=== PATIENT | male | born 1975 | race Caucasian/White ===

== ENCOUNTER 2016-08-20 17:21 | Observation (INO) | payer SELFPAY ==
[~2016-08-20] VITALS: Ht 172.7 cm; Wt 225.0 kg
[2016-08-20 17:22] VITALS: BP 195/100; PULSE 97; RESP 24; TEMP 97.7; O2SAT 97
--- NOTE | 2016-08-20 19:43 | PD ---
HPI Chief Complaint: Respiratory Symptoms Time Seen by Provider: 19:36 Travel History International Travel<30 days: No Contact w/Intl Traveler<30days: No Traveled to known affect area: No History of Present Illness HPI Patient is a 32-year-old male presenting to the emergency department for evaluation of shortness of breath, peripheral edema, dyspnea on exertion. He states the last few weeks he has become increasingly short of breath, he cannot lay flat without feeling like he is filling up with fluid. He states on Saturday night he was very short of breath and developed a chest tightness when he walked from the restaurant to the car. Patient states he has gained weight recently, he is unsure of how much but he states he feels very bloated and swollen. He also reports excessive thirst and excessive urination. Patient's past medical history includes hypertension, he quit smoking in January 2016. He has not been seen by her primary doctor in over 4 years due to lack of medical resources. Patient denies any chest pain currently. PFSH Past Medical History Narrative Medical Morbid obesity Arthritis: Yes Hypertension: Yes Respiratory: Yes (ASTHMA) Past Surgical History Joint Replacement: Yes (knee surgery) Social History Alcohol Use: No Tobacco Use: Yes (quit in January 2016) Substance Use: No Allergies-Medications (Allergen,Severity, Reaction): Coded Allergies: No Known Allergies (Unverified , 08/20/16) Review of Systems Except as stated in HPI: all other systems reviewed are Neg General / Constitutional: Positive: Weight Gain, No: Fever, Chills HENT: No: Headaches, Lightheadedness Cardiovascular: Positive: Chest Pain or Discomfort, Tachycardia, Dyspnea on exertion, Edema Respiratory: Positive: Shortness of Breath, Orthopnea Gastrointestinal: No: Nausea, Vomiting, Diarrhea, Abdominal Pain Genitourinary: Positive: Nocturia Musculoskeletal: No: Myalgias Neurologic: No: Weakness, Dizziness Endocrine: Positive: Polyuria, Polydipsia Physical Exam Narrative GENERAL: Warm and obese, well-developed, alert male. Resting comfortably in no acute distress. SKIN: Warm and dry. Dry scaling skin to bilateral lower extremities. HEAD: Atraumatic. Normocephalic. EYES: Pupils equal and round. No scleral icterus. No injection or drainage. ENT: No nasal bleeding or discharge. Mucous membranes pink and moist. NECK: Trachea midline. No JVD. CARDIOVASCULAR: Regular rate and rhythm without murmurs, gallops, clicks or rubs. 2+ peripheral edema bilateral lower extremities. RESPIRATORY: No accessory muscle use. Clear to auscultation. Diminished in bases. GASTROINTESTINAL: Abdomen obese, non-tender, nondistended. Hepatic and splenic margins not palpable. MUSCULOSKELETAL: No obvious deformities. No clubbing. No cyanosis. NEUROLOGICAL: Awake and alert. No obvious cranial nerve deficits. Motor grossly within normal limits. Normal speech. PSYCHIATRIC: Appropriate mood and affect; insight and judgment normal. Data Data Last Documented VS Vital Signs Date Time Temp Pulse Resp B/P Pulse Ox O2 Delivery O2 Flow Rate FiO2 08/20/16 17:22 97.7 97 24 195/100 97 Room Air Orders Complete Blood Count With Diff (08/20/16 19:33) Comprehensive Metabolic Panel (08/20/16 19:33) B-Type Natriuretic Peptide (08/20/16 19:33) Act Partial Throm Time (Ptt) (08/20/16 19:33) Prothrombin Time / Inr (Pt) (08/20/16 19:33) Magnesium (Mg) (08/20/16 19:33) Ckmb (Isoenzyme) Profile (08/20/16 19:33) Troponin I (08/20/16 19:33) Urinalysis - C+S If Indicated (08/20/16 19:33) Electrocardiogram (08/20/16 19:33) Chest, Pa & Lat (08/20/16 19:33) MDM Medical Decision Making Medical Screen Exam Complete: Yes Emergency Medical Condition: Yes Interpretation(s) Vital Signs Date Time Temp Pulse Resp B/P Pulse Ox O2 Delivery O2 Flow Rate FiO2 08/20/16 17:22 97.7 97 24 195/100 97 Room Air Differential Diagnosis Congestive heart failure versus pneumonia versus bronchitis versus morbid obesity versus ACS versus other Narrative Course Patient is a 40-year-old male presenting to emergency department evaluation of shortness of breath, weight gain, edema, chest pain. Patient's report of increased swelling and feeling of weight gain and bloating over the last several weeks coupled with the shortness of breath, dyspnea on exertion seem likely for diagnosis of congestive heart failure especially coupled with patient 's noncompliance with antihypertensives due to lack of insurance. Morbid obesity could lend to the feeling of shortness of breath and activity intolerance due to deconditioning from carrying that much weight. Labs, imaging , EKG ordered. Care of patient will be transferred to provider in medical pod when a bed is available. Carmen Davidson Aug 20, 2016 19:43
[2016-08-20 19:56] VITALS: BP 174/93; PULSE 93; RESP 30; O2SAT 93
--- NOTE | 2016-08-20 19:59 | RADRPT ---
EXAM DATE/TIME: 08/20/2016 19:55 [facility] COMPARISON: No previous studies available for comparison. INDICATIONS : Shortness of breath for the past three weeks. MEDICAL HISTORY : Hypertension. Asthma. SURGICAL HISTORY : None. ENCOUNTER: Initial ACUITY: 3 weeks PAIN SCORE: 0/10 LOCATION: Bilateral chest FINDINGS: PA and lateral views of the chest demonstrate the lungs to be symmetrically aerated without evidence of mass, infiltrate or effusion. The cardiomediastinal contours are unremarkable. Osseous structure s are intact. CONCLUSION: No acute cardiopulmonary disease demonstrated. Juan Weber MD on August 20, 2016 at 19:57 Board Certified Radiologist. This report was verified electronically.
--- NOTE | 2016-08-20 20:31 | PD ---
Physical Exam Time Seen by Provider: 20:29 Narrative The patient was initially assessed in triage by MARK Cain. See her note for initial assessment and evaluation. I reassessed the patient and I agree with initial evaluation and history of present illness. Data Data Last Documented VS Vital Signs Date Time Temp Pulse Resp B/P Pulse Ox O2 Delivery O2 Flow Rate FiO2 08/20/16 22:45 91 25 205/108 97 Room Air 08/20/16 17:22 97.7 Orders Complete Blood Count With Diff (08/20/16 19:33) Comprehensive Metabolic Panel (08/20/16 19:33) B-Type Natriuretic Peptide (08/20/16 19:33) Act Partial Throm Time (Ptt) (08/20/16 19:33) Prothrombin Time / Inr (Pt) (08/20/16 19:33) Magnesium (Mg) (08/20/16 19:33) Ckmb (Isoenzyme) Profile (08/20/16 19:33) Troponin I (08/20/16 19:33) Urinalysis - C+S If Indicated (08/20/16 19:33) Electrocardiogram (08/20/16 19:33) Chest, Pa & Lat (08/20/16 19:33) D-Dimer (08/20/16 20:31) Ct Pulmonary Angiogram (08/20/16 23:46) Clonidine (Catapres) (08/21/16 00:00) Iodixanol 320 Inj (Visipaque 320 Inj) (08/21/16 00:20) Admit Order (Ed Use Only) (08/21/16 00:35) Aspirin Ec (Ecotrin Ec) (08/21/16 00:45) Labs Laboratory Tests Test 08/20/16 08/20/16 20:10 21:45 White Blood Count 8.4 TH/MM3 Red Blood Count 4.27 MIL/MM3 Hemoglobin 13.5 GM/DL Hematocrit 39.8 % Mean Corpuscular Volume 93.1 FL Mean Corpuscular Hemoglobin 31.6 PG Mean Corpuscular Hemoglobin 33.9 % Concent Red Cell Distribution Width 15.5 % Platelet Count 216 TH/MM3 Mean Platelet Volume 7.6 FL Neutrophils (%) (Auto) 71.8 % Lymphocytes (%) (Auto) 19.2 % Monocytes (%) (Auto) 5.8 % Eosinophils (%) (Auto) 2.5 % Basophils (%) (Auto) 0.7 % Neutrophils # (Auto) 6.1 TH/MM3 Lymphocytes # (Auto) 1.6 TH/MM3 Monocytes # (Auto) 0.5 TH/MM3 Eosinophils # (Auto) 0.2 TH/MM3 Basophils # (Auto) 0.1 TH/MM3 CBC Comment DIFF FINAL Differential Comment Prothrombin Time 10.7 SEC Prothromb Time International 1.0 RATIO Ratio Activated Partial 27.3 SEC Thromboplast Time Sodium Level 140 MEQ/L Potassium Level 3.4 MEQ/L Chloride Level 100 MEQ/L Carbon Dioxide Level 32.5 MEQ/L Anion Gap 8 MEQ/L Blood Urea Nitrogen 21 MG/DL Creatinine 1.61 MG/DL Estimat Glomerular Filtration 48 ML/MIN Rate Random Glucose 103 MG/DL Calcium Level 8.6 MG/DL Magnesium Level 1.9 MG/DL Total Bilirubin 0.5 MG/DL Aspartate Amino Transf 35 U/L (AST/SGOT) Alanine Aminotransferase 55 U/L (ALT/SGPT) Alkaline Phosphatase 79 U/L Total Creatine Kinase 96 U/L Troponin I 0.06 NG/ML B-Type Natriuretic Peptide 63 PG/ML Total Protein 8.0 GM/DL Albumin 3.0 GM/DL D-Dimer Quantitative (PE/DVT) 0.62 MG/L [facility] Medical Record Reviewed: Yes Supervised Visit with SANG: Yes Differential Diagnosis Congestive heart failure, NC, PE Narrative Course The patient was initially assessed in triage by MARK Cain. See her note for initial assessment and evaluation. I reassessed the patient and I agree with initial evaluation and history of present illness. He placed on cardiopulmonary monitoring. IV site obtained. 2029: Chest x-ray concludes no acute cardiopulmonary disease. 2232: CBC unremarkable. Coags unremarkable. Potassium 3.4. Carbon dioxide 32.5. BUN 21. Creatinine 1.61. Troponin 0.06. BNP 63. I discussed the patient with Dr. Mckeon and she recommended for the patient to be admitted. 2299: Dr. Mckeon assumed care of the patient at this time. See her note for patient disposition. Scripts No Active Prescriptions or Reported Meds Christin Acevedo Aug 20, 2016 20:31
[2016-08-20 20:39] LABS: AUTOMATED NEUTROPHIL # 6.1 TH/MM3 (1.8-7.7); BASOPHIL # 0.1 TH/MM3 (0-0.2); BASOPHIL % 0.7 % (0.0-2.0); EOSINOPHIL # 0.2 TH/MM3 (0-0.4); EOSINOPHIL % 2.5 % (0.0-4.0); HEMATOCRIT 39.8 % (39.0-51.0); HEMO FLAGS DIFF FINAL; LYMPH % 19.2 % (9.0-44.0); LYMPHOCYTE # 1.6 TH/MM3 (1.0-4.8); MEAN CELL VOLUME 93.1 FL (80.0-100.0); MEAN CORPUSCULAR HEMOGLOBIN 31.6 PG (27.0-34.0); MEAN CORPUSCULAR HGB CONC 33.9 % (32.0-36.0); MONO % 5.8 % (0.0-8.0); NEUT % 71.8 % (16.0-70.0); PLATELET COUNT 216 TH/MM3 (150-450); RED BLOOD COUNT 4.27 MIL/MM3 (4.50-5.90); RED CELL DISTRIBUTION WIDTH 15.5 % (11.6-17.2); WHITE BLOOD COUNT 8.4 TH/MM3 (4.0-11.0)
[2016-08-20 20:56] LABS: ANION GAP 8 MEQ/L (5-15); AST (GOT) 35 U/L (15-37); BICARBONATE 32.5 MEQ/L (21.0-32.0); BLOOD UREA NITROGEN 21 MG/DL (7-18); CHLORIDE 100 MEQ/L (98-107); GLOMERULAR FILTRATION RATE 48 ML/MIN (>89); MAGNESIUM 1.9 MG/DL (1.5-2.5); POTASSIUM 3.4 MEQ/L (3.5-5.1); SODIUM (NA) 140 MEQ/L (136-145)
[2016-08-20 20:57] LABS: APTT (PATIENT) 27.3 SEC (24.3-30.1); PROTHROMBIN TIME - PATIENT 10.7 SEC (9.8-11.6)
[2016-08-20 21:00] LABS: ALKALINE PHOSPHATASE 79 U/L (45-117); ALT (GPT) 55 U/L (12-78); TOTAL BILIRUBIN ADULT 0.5 MG/DL (0.2-1.0)
[2016-08-20 21:11] LABS: CREATINE KINASE 96 U/L (39-308)
[2016-08-20 22:45] VITALS: BP 205/108; PULSE 91; RESP 25; O2SAT 97
[2016-08-21] VITALS (8 sets, daily range): BP systolic 117–164; BP diastolic 67–101; PULSE 72–94; RESP 18–25; TEMP 96.8–98.2; O2SAT 93–98
[2016-08-21] MEDS ORDERED: cloNIDine HCL 0.2 MG TAB PO ONE
[2016-08-21] MEDS ORDERED: IODIXANOL 320 MG/ML 10 ML VIAL (for RAD SPEC) IV ONE (00:20)
--- NOTE | 2016-08-21 00:43 | RADRPT ---
EXAM DATE/TIME: 08/21/2016 00:07 [facility] COMPARISON: No previous studies available for comparison. INDICATIONS : Shortness of breath and bilateral lower extremity edema IV CONTRAST: 50 cc Visipaque (iodixanol) IV RADIATION DOSE: 34.61 CTDIvol (mGy) MEDICAL HISTORY : Hypertension. Asthma. SURGICAL HISTORY : None. ENCOUNTER: Initial ACUITY: 2 days PAIN SCALE: 2/10 LOCATION: Bilateral chest TECHNIQUE: Volumetric scanning of the chest was performed using a pulmonary embolism protocol MIP images were re constructed. Using automated exposure control and adjustment of the mA and/or kV according to patien t size, radiation dose was kept as low as reasonably achievable to obtain optimal diagnostic quality images. FINDINGS: PULMONARY ARTERIES: No filling defects are seen in the pulmonary arteries through the segmental level. LUNGS: There is no consolidation or pneumothorax . No concerning pulmonary nodule is visualized. PLEURAE: There is no pleural thickening or pleural effusion. MEDIASTINUM: There is good visualization of the great vessels of the middle mediastinum. No evidence of mediastin al or hilar adenopathy/mass. MUSCULOSKELETAL: Within normal limits for patient age. MISCELLANEOUS: The visualized upper abdominal organs demonstrate no acute abnormality. The liver appears prominent. CONCLUSION: No pulmonary embolus. Juan Bonner MD on August 21, 2016 at 0:40 Board Certified Radiologist. This report was verified electronically.
[2016-08-21] MEDS ORDERED: ASPIRIN EC 325 MG TABEC PO ONE (00:45)
[2016-08-21] MEDS ORDERED: NALOXONE HCL 0.4 MG/ML AMP IV PRN (00:45)
[2016-08-21] MEDS ORDERED: SODIUM CHLORIDE 0.9% FLUSH 5 ML FLUSH FLUSH PRN (00:45)
[2016-08-21] MEDS ORDERED: NITROGLYCERIN 2% OINT 1 GM PACKET TOPICAL ONE (00:45)
[2016-08-21 02:17] LABS: BLOOD, URINE NEG (NEG); COMMENT (UR) CULT NOT INDICATED; CULTURE IF INDICATED CULT NOT INDICATED; GLUCOSE,URINE NEG (NEG); HYALINE CAST, URINE 2 /lpf (RARE); KETONE, URINE NEG (NEG); MUCUS URINE FEW /lpf (OCC); NITRITE,URINE NEG (NEG); SQUAMOUS EPITHELIAL CELL URINE 1 /hpf (0-5); URINE COLOR YELLOW (YELLW/STRAW)
[2016-08-21] MEDS ORDERED: ACETAMINOPHEN 325 MG TAB PO ONE (06:15)
[2016-08-21] MEDS ORDERED: ACETAMINOPHEN/HYDROcodone 325 MG/5 MG TAB PO PRN (07:30)
[2016-08-21] MEDS ORDERED: MORPHINE SULFATE 4 MG/ML INJ IV PRN (07:30)
[2016-08-21] MEDS ORDERED: NITROGLYCERIN 0.4 MG SL 25 TABS/BTL SL PRN (07:30)
[2016-08-21] MEDS ORDERED: ACETAMINOPHEN 325 MG TAB PO PRN (07:30)
--- NOTE | 2016-08-21 08:30 | HHI.HP ---
HPI Service [facility] Primary Care Physician No Primary Care Physician Admission Diagnosis chest pain/elevated troponin Diagnoses: Chief Complaint: chest pain SOB Travel History International Travel<30 Days: No Contact w/Intl Traveler <30 Da: No Traveled to Known Affected Are: No History of Present Illness 40 yo morbidly obese male with no PMHX but patient reports he has not been to see a physician for the past 4 years who presents to [facility] with complaints of shortness of breath and "chest congestion" for the past several weeks that occurs primarily when lying supine. Patient also reports weight gain of 16 pounds in that time and lower extremity swelling. This past Saturday , he developed chest tightness and LEONARD that occurred while walking across a parking lot and improved with rest. He denies any associated fever, chills, lightheadedness, dizziness, N/V or diaphoresis. He has had a previous EKG several years ago that was unremarkable per patient report. Review of Systems 10 point review of systems completed and all pertinents as stated in HPI Past Family Social History Past Medical History Patient denies any PMHX but does not have PCP and has not seen in a physician in 4 yrs Past Surgical History Right knee arthroscopy Reported Medications Patient denies taking any medications at home Allergies: Coded Allergies: No Known Allergies (Unverified , 08/20/16) Active Ordered Medications Active Medications Acetaminophen (Tylenol) 650 mg ONCE ONCE PO Last administered on 08/21/16 06: 27; Admin Dose 650 MG; Start 08/21/16 at 06:15; Stop 08/21/16 at 06:23; Status DC Acetaminophen (Tylenol) 650 mg Q6H PRN PO; Start 08/21/16 at 07:30 Acetaminophen/ Hydrocodone Bitart ([place] 5-325 Mg) 1 tab Q4H PRN PO; Start at 07:30 Aspirin (Ecotrin Ec) 325 mg ONCE ONCE PO Last administered on 08/21/16 00:56; Admin Dose 325 MG; Start 08/21/16 at 00:45; Stop 08/21/16 at 00:46; Status DC Clonidine (Catapres) 0.2 mg ONCE ONCE PO Last administered on 08/21/16 00:56; Admin Dose 0.2 MG; Start 08/21/16 at 00:00; Stop 08/21/16 at 00:01; Status DC Iodixanol (Visipaque 320 Inj) 50 ml STK-MED ONCE IV Last administered on 00:20; Admin Dose 50 ML; Start 08/21/16 at 00:20; Stop 08/21/16 at 00:21; Status DC IV Flush (NS Flush) 2 ml BID FLUSH; Start 08/21/16 at 09:00 IV Flush (NS Flush) 2 ml UNSCH PRN FLUSH; Start 08/21/16 at 00:45 Morphine Sulfate (Morphine Inj) 2 mg Q3H PRN IV; Start 08/21/16 at 07:30 Naloxone HCl (Narcan Inj) 0.4 mg UNSCH PRN IV; Start 08/21/16 at 00:45 Nitroglycerin (Nitroglycerin 2% Oint) 1 inch ONCE ONCE TOPICAL Last administered on 08/21/16 00:57; Admin Dose 1 INCH; Start 08/21/16 at 00:45; Stop 08/21/16 at 00:46; Status DC Nitroglycerin (Nitrostat Sl) 0.4 mg Q5M PRN SL; Start 08/21/16 at 07:30 Family History Mother has DM and recent stroke one week ago, age 55 Social History Patient denies any history of tobacco, ETOH or illicit drug use Physical Exam Vital Signs Vital Signs Date Time Temp Pulse Resp B/P Pulse Ox O2 Delivery O2 Flow Rate FiO2 08/21/16 08:09 98.0 80 20 122/71 93 08/21/16 03:36 90 08/21/16 02:39 97.8 87 18 142/68 97 08/21/16 01:01 94 25 164/101 98 Room Air 08/20/16 22:45 91 25 205/108 97 Room Air 08/20/16 19:56 93 30 174/93 93 Room Air 08/20/16 19:56 95 30 08/20/16 17:22 97.7 97 24 195/100 97 Room Air Physical Exam GENERAL: This is a well-nourished, well-developed morbidly obese patient, in no apparent distress. SKIN: No rashes, ecchymoses or lesions. Cool and dry. HEAD: Atraumatic. Normocephalic. No temporal or scalp tenderness. EYES: Pupils equal round and reactive. Extraocular motions intact. No scleral icterus. No injection or drainage. ENT: Nose without bleeding, purulent drainage or septal hematoma. Throat without erythema, tonsillar hypertrophy or exudate. Uvula midline. Airway patent. NECK: Trachea midline. No JVD or lymphadenopathy. Supple, nontender, no meningeal signs. CARDIOVASCULAR: Regular rate and rhythm without murmurs, gallops, or rubs. RESPIRATORY: Clear to auscultation. Breath sounds equal bilaterally. No wheezes , rales, or rhonchi. GASTROINTESTINAL: Abdomen soft, non-tender, nondistended. No hepato-splenomegaly , or palpable masses. No guarding. MUSCULOSKELETAL: Extremities without clubbing or cyanosis. No joint tenderness or effusion noted. No calf tenderness. 2+ BLE edema. NEUROLOGICAL: Awake and alert. Cranial nerves II through XII intact. Motor and sensory grossly within normal limits. Five out of 5 muscle strength in all muscle groups. Normal speech. Laboratory Laboratory Tests Test 08/20/16 08/20/16 08/21/16 08/21/16 20:10 21:45 01:36 01:50 White Blood Count 8.4 Red Blood Count 4.27 Hemoglobin 13.5 Hematocrit 39.8 Mean Corpuscular Volume 93.1 Mean Corpuscular Hemoglobin 31.6 Mean Corpuscular Hemoglobin 33.9 Concent Red Cell Distribution Width 15.5 Platelet Count 216 Mean Platelet Volume 7.6 Neutrophils (%) (Auto) 71.8 Lymphocytes (%) (Auto) 19.2 Monocytes (%) (Auto) 5.8 Eosinophils (%) (Auto) 2.5 Basophils (%) (Auto) 0.7 Neutrophils # (Auto) 6.1 Lymphocytes # (Auto) 1.6 Monocytes # (Auto) 0.5 Eosinophils # (Auto) 0.2 Basophils # (Auto) 0.1 CBC Comment DIFF FINAL Differential Comment Prothrombin Time 10.7 Prothromb Time International 1.0 Ratio Activated Partial 27.3 Thromboplast Time Sodium Level 140 Potassium Level 3.4 Chloride Level 100 Carbon Dioxide Level 32.5 Anion Gap 8 Blood Urea Nitrogen 21 Creatinine 1.61 Estimat Glomerular Filtration 48 Rate Random Glucose 103 Calcium Level 8.6 Magnesium Level 1.9 Total Bilirubin 0.5 Aspartate Amino Transf 35 (AST/SGOT) Alanine Aminotransferase 55 (ALT/SGPT) Alkaline Phosphatase 79 Total Creatine Kinase 96 99 Troponin I 0.06 0.07 B-Type Natriuretic Peptide 63 Total Protein 8.0 Albumin 3.0 D-Dimer Quantitative (PE/DVT) 0.62 Urine Color YELLOW Urine Turbidity CLEAR Urine pH 6.0 Urine Specific [place] 1.018 Urine Protein 30 Urine Glucose (UA) NEG Urine Ketones NEG Urine Occult Blood NEG Urine Nitrite NEG Urine Bilirubin NEG Urine Urobilinogen LESS THAN 2.0 Urine Leukocyte Esterase NEG Urine RBC 1 Urine WBC 1 Urine Squamous Epithelial 1 Cells Urine Hyaline Casts 2 Urine Mucus FEW Microscopic Urinalysis Comment CULT NOT INDICATED Result Diagram: 08/20/16200908/20/162009 Imaging Last Impressions CT Angiography 08/20/16 0136 Signed Impressions: Service Date/Time: Sunday, August 21, 2016 00:07 - CONCLUSION: No pulmonary embolus. Juan Bonner MD Chest X-Ray 08/20/16 193 Signed Impressions: Service Date/Time: Saturday, August 20, 2016 19:55 - CONCLUSION: No acute cardiopulmonary disease demonstrated. Juan Weber MD Assessment and Plan Assessment and Plan 40 yo morbidly obese male with no PMHX who is admitted for SOB, LEONARD and chest tightness. Chest pain with new LBBB - Admit on telemetry - Cardiology consulted - spoke with Dr. Harman who is agreeable to seeing patient today and recommends nuclear study - Heparin drip - Morphine prn - Atorvastatin 80mg po daily - ASA and BB daily - c/w Nitro patch - Echocardiogram ordered - NPO p MN - Per discussion with cardiology, if nuclear stress test positive, likely patient will be scheduled for cardiac catheterization - obtain TSH level - Lipid panel in am Hypokalemia - mild - replete - am labs to monitor DVT prophylaxis - on Heparin drip Written by Katherine Blood, acting as scribe for Dr. Waddell on 08/21/16 at 08: 23. The documentation accurately reflects the work performed [id number] by me on at 08:23. Discussed Condition With Dr. Marcos Harman, cardiology Katherine Blood PA-C Aug 21, 2016 08:30 Cristina Waddell DO Aug 21, 2016 18:02
[2016-08-21] MEDS ORDERED: HEPARIN-D5W INJ 250 ML IV SCH (08:45)
[2016-08-21] MEDS ORDERED: HEPARIN SODIUM - IV 10,000 UNITS/10 ML VIAL IV ONE (08:45)
[2016-08-21] MEDS: SODIUM CHLORIDE 0.9% FLUSH 5 ML FLUSH FLUSH SCH ×2 (09:31→21:38)
[2016-08-21] MEDS: ATORVASTATIN 80 MG TAB PO SCH (09:31)
[2016-08-21] MEDS: METOPROLOL TARTRATE 25 MG TAB PO SCH ×2 (09:39→21:38)
[2016-08-21 09:55] LABS: HEMATOCRIT 36.6 % (39.0-51.0); MEAN CELL VOLUME 93.5 FL (80.0-100.0); MEAN CORPUSCULAR HGB CONC 33.1 % (32.0-36.0); PLATELET COUNT 198 TH/MM3 (150-450); RED BLOOD COUNT 3.91 MIL/MM3 (4.50-5.90); RED CELL DISTRIBUTION WIDTH 15.4 % (11.6-17.2); WHITE BLOOD COUNT 8.3 TH/MM3 (4.0-11.0)
[2016-08-21 09:57] LABS: REVIEW FLAG FINAL
[2016-08-21 10:06] LABS: APTT (PATIENT) 25.4 SEC (24.3-30.1); PROTHROMBIN TIME - PATIENT 11.3 SEC (9.8-11.6)
[2016-08-21] MEDS ORDERED: REGADENOSON INJ 0.4 MG/5 ML SYR ONE (10:43)
--- NOTE | 2016-08-21 12:56 | MB ---
cc: DAMIÁN PAIGE DATE OF CONSULTATION 08/21/2016 INDICATION Chest pain HISTORY OF PRESENT ILLNESS This is a 40-year-old time without past medical history except for morbid obesity who presents to the emergency department with progressive shortness of breath and some chest congestion. He also reports that he has recently had worsening dyspnea on exertion associated with some exertional chest pain. This has been ongoing since Saturday. His symptoms are somewhat relieved with rest. He has had also some nonproductive cough. Denies any fever or chills. His electrocardiogram shows a left bundle-branch block. No prior EKG's for comparison, but the patient says he has had a prior EKG that was reportedly normal. He is currently chest pain-free. He had a CT angiogram which showed no evidence of pulmonary embolism yesterday evening. His troponin is in the intermediate range at 0.07 peak. PAST MEDICAL HISTORY None except for right knee arthroscopy. ALLERGIES None MEDICATIONS None FAMILY HISTORY Denies any family history of early coronary artery disease or sudden cardiac . SOCIAL HISTORY Denies any alcohol, tobacco or drug use. REVIEW OF SYSTEMS 12-point view of some was performed and is negative unless otherwise noted in the history of present illness. PHYSICAL EXAMINATION VITAL SIGNS: Temperature 98, pulse 80, blood pressure 122/71 mmHg. GENERAL: Alert and oriented x3 in no acute distress. HEENT: Exam shows pupils reactive to light and accommodation. Extraocular movements are intact. NECK: No jugular venous distension. No thyromegaly or lymphadenopathy. No carotid bruits. LUNGS: Clear to auscultation bilaterally. CARDIOVASCULAR: Regular rate and rhythm without murmurs, rubs or gallops. ABDOMEN: Nontender, nondistended. Good bowel sounds. No hepatosplenomegaly. EXTREMITIES: No clubbing, cyanosis or edema. Good peripheral pulses. NEUROLOGIC: Cranial nerves intact. Motor and sensory grossly intact. LABORATORY DATA Sodium 140, potassium 3.4, BUN is 21, creatinine is 1.61, INR is 1. WBC 8.3, hemoglobin is 12.1, platelet count 198. Electrocardiogram sinus rhythm, left bundle-branch block. ASSESSMENT 1. Chest pain 2. Morbid obesity PLAN The patient has a typical and atypical features to his chest pain. Given his age, it is less likely that he has significant atherosclerosis, although he is morbidly obese. His troponin is in the intermediate range. His creatinine is mildly elevated 1.61 and he did get contrast with a CT angio yesterday which was negative for pulmonary embolism. Also given his weight with a restricted availability for invasive procedure such as cardiac catheterization with limitation to only one available table. I think it would be worthwhile to proceed first with a nuclear stress test. It will need to be a two day study. If that is unremarkable, we can treat him more conservatively. We will check an echocardiogram to make sure this is not an underlying cardiomyopathy. If the stress test is abnormal, we will have to proceed with a consideration for cardiac catheterization via radial approach. We will continue with current medical therapy. MD CABRERA Johnson/BIB /11:52 AM /12:48 PM
[2016-08-21] MEDS ORDERED: POTASSIUM CHLORIDE 20 MEQ CONTROLLED RELEASE TAB PO ONE (13:00)
[2016-08-21] MEDS ORDERED: HEPARIN SODIUM - IV 10,000 UNITS/10 ML VIAL IV PRN ×2 (14:45)
[2016-08-21 15:40] LABS: APTT (PATIENT) 30.1 SEC (24.3-30.1)
--- NOTE | 2016-08-21 16:48 | EC ---
Study Study Date:08/21/2016 STUDY CONCLUSIONS SUMMARY - Left ventricle: The cavity size was normal. Wall thickness was increased in a pattern of mild LVH. Systolic function was normal. The estimated ejection fraction was in the range of 55% to 60%. Wall motion was normal; there were no regional wall motion abnormalities. - Mitral valve: Mild regurgitation. - Tricuspid valve: Mild regurgitation. If LV function is below 40, please consider prescribing an ACEI or ARB or document rationale for non-use. PROCEDURE DATA STUDY STATUS: Elective. Procedure: Transthoracic echocardiography. Image quality was good. Scanning was performed from the parasternal, apical, and subcostal acoustic windows. Study completion: The patient tolerated the procedure well. Transthoracic echocardiography. M-mode, complete 2D, complete spectral Doppler, and color Doppler. Patient status: Inpatient. CARDIAC ANATOMY LEFT VENTRICLE: The cavity size was normal. Wall thickness was increased in a pattern of mild LVH. Systolic function was normal. The estimated ejection fraction was in the range of 55% to 60%. Wall motion was normal; there were no regional wall motion abnormalities. AORTIC VALVE: Trileaflet; normal thickness leaflets. Doppler: Transvalvular velocity was within the normal range. There was no stenosis. No regurgitation. AORTA: Aortic root: The aortic root was normal in size. MITRAL VALVE: Structurally normal valve. Doppler: Transvalvular velocity was within the normal range. There was no evidence for stenosis. Mild regurgitation. LEFT ATRIUM: The atrium was normal in size. RIGHT VENTRICLE: The cavity size was normal. Wall thickness was normal. PULMONIC VALVE: Doppler: Transvalvular velocity was within the normal range. There was no evidence for stenosis. No regurgitation. TRICUSPID VALVE: Structurally normal valve. Doppler: Transvalvular velocity was within the normal range. Mild regurgitation. PULMONARY ARTERY: The main pulmonary artery was normal-sized. Systolic pressure was within the normal range. RIGHT ATRIUM: The atrium was normal in size. PERICARDIUM: There was no pericardial effusion. SYSTEMIC VEINS: Inferior vena cava: The vessel was normal in size. BASIC MEASUREMENTS ADULT NORMAL Left ventricle LV internal dimension, ED, chordal level, *56 mm 43-52 PLAX LV internal dimension, ES, chordal level, *45 mm 23-38 PLAX Fractional shortening, chordal level, PLAX *20 % >29 LV posterior wall thickness, ED 17 mm IVS/LVPW ratio, ED 1.14 <1.3 Ventricular septum Septal thickness, ED 19.3 mm Aortic valve Leaflet separation 25 mm 15-26 Right ventricle RV internal dimension, ED, PLAX 32.9 mm 19-38 BASIC MEASUREMENTS ADULT NORMAL Aortic valve Leaflet separation 25 mm 15-26 Aorta Root diameter, ED 37 mm 20-37 Left atrium Anterior-posterior dimension, ES *58 mm 19-40 LA/aortic root ratio 1.57 LEGEND: Mean values are shown as u=mean value. Asterisk (*) jama values outside specified normal range. Prepared and signed by Marcos Harman [id number]
--- NOTE | 2016-08-21 16:59 | EKG ---
Date Performed: 08/20/2016 Time Performed: 19:40:45 PTAGE: 40 years EKG: Sinus rhythm MARKED LEFT AXIS DEVIATION LEFT BUNDLE BRANCH BLOCK Since previous tracing, no significant change no annetta ABNORMAL ECG NO PREVIOUS TRACING DOCTOR: Renato Herrera Interpretating Date/Time 08/21/2016 16:58:21
--- NOTE | 2016-08-21 16:59 | EKG ---
Date Performed: 08/21/2016 Time Performed: 01:52:13 PTAGE: 40 years EKG: Sinus rhythm POSSIBLE LEFT ATRIAL ENLARGEMENT MARKED LEFT AXIS DEVIATION LEFT BUNDLE BRANCH BLOCK Since previous tracing, no significant change noted ABNORMAL ECG PREVIOUS TRACING : 08/20/2016 19.40 DOCTOR: Renato Herrera Interpretating Date/Time 08/21/2016 16:58:04
[2016-08-21 22:20] LABS: APTT (PATIENT) 31.7 SEC (24.3-30.1)
[2016-08-22 00:28] VITALS: BP 151/76; PULSE 77; RESP 24; TEMP 97.2; O2SAT 91
--- NOTE | 2016-08-22 01:00 | HHI.PR ---
Addendum to Inpatient Note Addendum Reason: Additional Documentation Additional Information The patient had two 2.2 second pauses on cardiac telemetry tonight at around 2350 with heart rate dropping down into the 30s. Vital signs are stable and the patient is asymptomatic. He was started on metoprolol 25 mg by mouth twice a day today and I will place on hold for now. I will defer further management decisions to daytime rounding providers. . Nita Mendes Aug 22, 2016 01:00
[2016-08-22 03:33] VITALS: BP 136/71; PULSE 77; RESP 20; TEMP 96.9; O2SAT 91
[2016-08-22 04:53] LABS: APTT (PATIENT) 32.9 SEC (24.3-30.1)
[2016-08-22 05:13] LABS: BICARBONATE 34.4 MEQ/L (21.0-32.0); POTASSIUM 3.7 MEQ/L (3.5-5.1)
[2016-08-22 05:17] LABS: HDL CHOLESTEROL 56.5 MG/DL (40.0-60.0)
[2016-08-22 08:00] VITALS: PULSE 82
[2016-08-22 08:05] VITALS: BP 141/74; PULSE 87; RESP 20; O2SAT 96
--- NOTE | 2016-08-22 08:22 | PD.CARD.PN ---
Subjective Subjective Remarks few bradycardiac events last night no CP Objective Medications Active Medications Atorvastatin Calcium (Lipitor) 80 mg DAILY PO Last administered on 08/21/16 09: 31; Admin Dose 80 MG; Start 08/21/16 at 09:00 Heparin Sodium (Porcine) (Heparin Inj) 4,000 units ONCE ONCE IV Last administered on 08/21/16 09:32; Admin Dose 4,000 UNITS; Start 08/21/16 at 08:45 ; Stop 08/21/16 at 08:46; Status DC Heparin Sodium (Porcine) (Heparin Inj) 5,000 units UNSCH PRN IV; Start at 14:45 Heparin Sodium (Porcine) 2500 units 2,500 units UNSCH PRN IV; Start 08/21/16 at 14:45 Heparin Sodium/ Dextrose (Heparin-D5W Inj) 250 ml @ 0 mls/hr TITRATE IV Last administered on 08/21/16 09:34; Admin Dose 0 MLS/HR; Start 08/21/16 at 08:45 IV Flush (NS Flush) 2 ml BID FLUSH Last administered on 08/21/16 21:38; Admin Dose 2 ML; Start 08/21/16 at 09:00 Metoprolol Tartrate (Lopressor) 25 mg Q12HR PO Last administered on 08/21/16 21 :38; Admin Dose 25 MG; Start 08/21/16 at 09:30; Status Hold Potassium Chloride (KCl) 40 meq ONCE ONCE PO; Start 08/21/16 at 13:00; Stop at 13:01; Status DC Regadenoson (Lexiscan Inj) 0.4 mg STK-MED ONCE .ROUTE Last administered on 10:43; Admin Dose 0.4 MG; Start 08/21/16 at 10:43; Stop 08/21/16 at 10:44; Status DC Vital Signs / I&O Vital Signs Date Time Temp Pulse Resp B/P Pulse Ox O2 Delivery O2 Flow Rate FiO2 08/22/16 08:05 87 20 141/74 96 08/22/16 03:33 96.9 77 20 136/71 91 08/22/16 00:28 97.2 77 24 151/76 91 08/21/16 23:32 96.8 77 20 164/86 93 08/21/16 20:00 83 2/21/17 19:56 96.8 87 20 117/67 94 08/21/16 11:49 98.2 72 19 142/68 95 I/O 08/21/16 08/21/16 08/21/16 08/22/16 08/22/16 08/22/16 07:00 15:00 23:00 07:00 15:00 23:00 Intake Total 620 ml 0 ml Balance 620 ml 0 ml Intake Oral 620 ml 0 ml # Voids 1 2 # Bowel Movements 0 0 Physical Exam GENERAL: SKIN: Warm and dry. HEAD: Normocephalic. EYES: No scleral icterus. No injection or drainage. NECK: Supple, trachea midline. No JVD or lymphadenopathy. CARDIOVASCULAR: Regular rate and rhythm without murmurs, gallops, or rubs. RESPIRATORY: Breath sounds equal bilaterally. No accessory muscle use. GASTROINTESTINAL: Abdomen soft, non-tender, nondistended. MUSCULOSKELETAL: No cyanosis, or edema. BACK: Nontender without obvious deformity. No CVA tenderness. Laboratory Laboratory Tests Test 08/21/16 08/21/16 08/21/16 08/22/16 09:12 14:42 21:19 04:29 White Blood Count 8.3 TH/MM3 Red Blood Count 3.91 MIL/MM3 Hemoglobin 12.1 GM/DL Hematocrit 36.6 % Mean Corpuscular Volume 93.5 FL Mean Corpuscular Hemoglobin 31.0 PG Mean Corpuscular Hemoglobin 33.1 % Concent Red Cell Distribution Width 15.4 % Platelet Count 198 TH/MM3 Mean Platelet Volume 8.0 FL Prothrombin Time 11.3 SEC Prothromb Time International 1.0 RATIO Ratio Activated Partial 25.4 SEC 30.1 SEC 31.7 SEC 32.9 SEC Thromboplast Time Total Creatine Kinase 79 U/L Troponin I 0.05 NG/ML Thyroid Stimulating Hormone 1.720 uIU/ML 3rd Gen Sodium Level 140 MEQ/L Potassium Level 3.7 MEQ/L Chloride Level 100 MEQ/L Carbon Dioxide Level 34.4 MEQ/L Anion Gap 6 MEQ/L Blood Urea Nitrogen 24 MG/DL Creatinine 1.57 MG/DL Estimat Glomerular Filtration 50 ML/MIN Rate Random Glucose 114 MG/DL Calcium Level 8.7 MG/DL Triglycerides Level 61 MG/DL Cholesterol Level 137 MG/DL LDL Cholesterol 68 MG/DL HDL Cholesterol 56.5 MG/DL Cholesterol/HDL Ratio 2.42 RATIO Assessment and Plan Assessment and Plan CP - awaiting SPECT results. no further CP. troponin indeterminate. OK to DC heparin gtt. keep NPO for possible cath today if SPECT abnormal. bradycardia - DC metoprolol. may consider ACEi if HTN. Marcos Harman MD Aug 22, 2016 08:22
[2016-08-22] MEDS: SODIUM CHLORIDE 0.9% FLUSH 5 ML FLUSH FLUSH SCH (09:28)
[2016-08-22] MEDS: ATORVASTATIN 80 MG TAB PO SCH (09:28)
--- NOTE | 2016-08-22 09:52 | RADRPT ---
EXAM DATE/TIME: 08/21/2016 10:57 [facility] COMPARISON: No previous studies available for comparison. INDICATIONS : Midsternal chest pain for 1 day. History of smoking. Angina. DOSE: 32.7 mCi Tc99m Myoview at stress. 30.1 mCi Tc99m Myoview at rest. 0.4 mg Lexiscan STRESS SYMPTOMS: Chest tightness, tingling and dyspnea. EJECTION FRACTION: 40% MEDICAL HISTORY : Diabetes mellitus type 2. Hypertension. Hypercholesterolemia. SURGICAL HISTORY : Right knee surgery. ENCOUNTER: Initial ACUITY: 1 day PAIN SCALE: 3/10 LOCATION: Midsternal chest TECHNIQUE: The patient underwent pharmacologic stress with infusion of prescribed dose. Continuous ECG tracing was monitored during stress. Gated SPECT imaging was performed after stress and conventional SPECT i maging was performed at rest. The examination was performed on a SPECT/CT scanner, both attenuation and non-corrected datasets were reviewed. FINDINGS: DISTRIBUTION: The maximum perfused segment at stress is in the posterobasal wall. PERFUSION STUDY: There is mildly diminished relative perfusion to the anteroseptal region extending to the cardiac ape x. There is no evidence of redistribution. GATED STUDY: Moderate left ventricular chamber enlargement and mild global hypokinesis. CONCLUSION: Moderate LV chamber dilatation and LV dysfunction. Mild severity fixed anteroseptal and apical perfus ion abnormalities without evidence of ischemia. RISK CATEGORY: Intermediate (1-3% Annual Mortality Rate) Juan Pace MD on August 22, 2016 at 9:45 Board Certified Radiologist. This report was verified electronically.
[2016-08-22] MEDS ORDERED: SODIUM CHLOR 0.9% 1000 ML INJ 1,000 ML IV SCH (11:00)
[2016-08-22] MEDS ORDERED: AMLO5 PO (11:47)
--- NOTE | 2016-08-22 11:51 | HHI.DCPOC ---
Discharge Care Plan Diagnosis: (1) Morbid obesity (2) Hypertension (3) Chest pain (4) Acute kidney injury Goals to Promote Your Health * To prevent worsening of your condition and complications * To maintain your health at the optimal level Directions to Meet Your Goals Take your medications as prescribed Follow your dietary instruction Follow activity as directed Keep your appointments as scheduled Take your immunizations and boosters as scheduled If your symptoms worsen call your PCP, if no PCP go to Urgent Care Center or Emergency Room Smoking is Dangerous to Your Health. Avoid second hand smoke Call the 24-hour hour crisis hotline for domestic abuse at Katherine Blood PA-C Aug 22, 2016 11:50
[2016-08-22 13:03] LABS: APTT (PATIENT) 28.9 SEC (24.3-30.1)
[2016-08-22] MEDS ORDERED: ASPI-147 PO (14:32)
--- NOTE | 2016-08-22 14:55 | HHI.PR ---
Subjective Remarks Follow up on patient with complaints of chest pain and SOB. No episodes of chest pain overnight. No further SOB since admission. No N/V. Completed second half of nuclear stress test. No other medical complaints. Objective Vitals Vital Signs Date Time Temp Pulse Resp B/P Pulse Ox O2 Delivery O2 Flow Rate FiO2 08/22/16 08:05 87 20 141/74 96 08/22/16 08:00 82 08/22/16 03:33 96.9 77 20 136/71 91 08/22/16 00:28 97.2 77 24 151/76 91 08/21/16 23:32 96.8 77 20 164/86 93 08/21/16 20:00 83 08/21/16 19:56 96.8 87 20 117/67 94 I/O 08/21/16 08/21/16 08/21/16 08/22/16 08/22/16 08/22/16 07:00 15:00 23:00 07:00 15:00 23:00 Intake Total 620 ml 0 ml Balance 620 ml 0 ml Intake Oral 620 ml 0 ml # Voids 1 2 # Bowel Movements 0 0 Result Diagram: 08/21/16 0912 08/22/16 0429 Imaging Last 48 hours Impressions Myocardial Perfusion Scan Nuc Med 08/21/16 0000 Signed Impressions: Service Date/Time: Sunday, August 21, 2016 10:57 - CONCLUSION: Moderate LV chamber dilatation and LV dysfunction. Mild severity fixed anteroseptal and apical perfusion abnormalities without evidence of ischemia. RISK CATEGORY: Intermediate (1-3%% Annual Mortality Rate) Juan Pace MD CT Angiography 08/20/16 2566 Signed Impressions: Service Date/Time: Sunday, August 21, 2016 00:07 - CONCLUSION: No pulmonary embolus. Juan Bonner MD Chest X-Ray 08/20/16 1933 Signed Impressions: Service Date/Time: Saturday, August 20, 2016 19:55 - CONCLUSION: No acute cardiopulmonary disease demonstrated. Juan Weber MD Objective Remarks GENERAL: This is a well-nourished, well-developed morbidly obese patient, in no apparent distress. SKIN: No rashes, ecchymoses or lesions. Cool and dry. HEAD: Atraumatic. Normocephalic. No temporal or scalp tenderness. EYES: Pupils equal round and reactive. Extraocular motions intact. No scleral icterus. No injection or drainage. ENT: Nose without bleeding, purulent drainage or septal hematoma. Airway patent. NECK: Trachea midline. No JVD or lymphadenopathy. Supple, nontender, no meningeal signs. CARDIOVASCULAR: Regular rate and rhythm without murmurs, gallops, or rubs. RESPIRATORY: Clear to auscultation. Breath sounds equal bilaterally. No wheezes , rales, or rhonchi. GASTROINTESTINAL: Abdomen soft, non-tender, nondistended. No hepato-splenomegaly , or palpable masses. No guarding. MUSCULOSKELETAL: Extremities without clubbing or cyanosis. No joint tenderness or effusion noted. No calf tenderness. 1+ BLE edema. NEUROLOGICAL: Awake and alert. Cranial nerves II through XII intact. Motor and sensory grossly within normal limits. Five out of 5 muscle strength in all muscle groups. Normal speech. Medications and IVs Current Medications Medications (Trade) Dose Ordered Sig/Soheila Route Start Time Stop Time Status Last Admin (NS Flush) 2 ml UNSCH PRN FLUSH 08/21/16 00:45 (NS Flush) 2 ml BID FLUSH 08/21/16 09:00 08/22/16 09:28 (Narcan Inj) 0.4 mg UNSCH PRN IV 08/21/16 00:45 (Nitrostat Sl) 0.4 mg Q5M PRN SL 08/21/16 07:30 (Tylenol) 650 mg Q6H PRN PO 08/21/16 07:30 (Swisher 5-325 Mg) 1 tab Q4H PRN PO 08/21/16 07:30 08/21/16 09:31 (Morphine Inj) 2 mg Q3H PRN IV 08/21/16 07:30 Atorvastatin Calcium 80 mg 80 mg DAILY PO 08/21/16 09:00 08/22/16 09:28 (NS 1000 ml Inj) 1,000 ml @ 84 mls/hr [id number] IV 08/22/16 11:00 08/22/16 22:54 A/P Assessment and Plan 40 yo morbidly obese male with no PMHX who is admitted for SOB, LEONARD and chest tightness. Chest pain with new LBBB - Cardiology following - SPECT shows no evidence of ischemia and echo showing normal EF. Ok to discharge from cardiac standpoint - episode of 2.2 second pause and heart rate in the 30s last night, Lopressor held by provider relations consultant MOLD CHECKER - Lipid panel and TSH level WNL Hypokalemia - resolved ROMIE - mild - encourage oral hydration - recommend f/u with PCP to assess possible CKD DVT prophylaxis observed Written by Katherine Blood, acting as scribe for Dr. Ventura on 08/22/16 at 14: 54. Discharge Planning Discharge patient to home Condition on discharge: Improved Heart healthy as tolerated Ad Vianey activity Rx written: Ecotrin and Norvasc Follow-up with primary care physician and cardiology Dr. Harman Attending Statement The documentation accurately reflects the work performed [id number] by me, Dr. Ventura on 08/22/16 at 14:54. Katherine Blood PA-C Aug 22, 2016 14:55 Erasmo Ventura MD Aug 22, 2016 22:58
--- NOTE | 2016-09-03 19:42 | PD ---
Physical Exam Date Seen by Provider: Aug 20, 2016 Time Seen by Provider: 20:40 Narrative I, Dr. Pederson, have reviewed the advance practice practitioner's documentation and am in agreement, met with the patient face to face, made the diagnosis, and the medical decision making was done by me. *My assessment and Findings: Patient seen by my PA, evaluated with PA, please see previous notes, chest pain, admitted to chest pain center. Data Data Orders Complete Blood Count With Diff (08/20/16 19:33) Comprehensive Metabolic Panel (08/20/16 19:33) B-Type Natriuretic Peptide (08/20/16 19:33) Act Partial Throm Time (Ptt) (08/20/16 19:33) Prothrombin Time / Inr (Pt) (08/20/16 19:33) Magnesium (Mg) (08/20/16 19:33) Ckmb (Isoenzyme) Profile (08/20/16 19:33) Troponin I (08/20/16 19:33) Urinalysis - C+S If Indicated (08/20/16 19:33) Electrocardiogram (08/20/16 19:33) Chest, Pa & Lat (08/20/16 19:33) D-Dimer (08/20/16 20:31) Ct Pulmonary Angiogram (08/20/16 23:46) Clonidine (Catapres) (08/21/16 00:00) Iodixanol 320 Inj (Visipaque 320 Inj) (08/21/16 00:20) Admit Order (Ed Use Only) (08/21/16 00:35) Aspirin Ec (Ecotrin Ec) (08/21/16 00:45) MDM Medical Record Reviewed: Yes Supervised Visit with SANG: Yes Diagnosis Primary Impression: Chest pain Admitting Information Admitting Physician Requests: Admit Patient Instructions: Amlodipine (By mouth), Chest Pain (DC) Scripts Aspirin DR (Ecotrin Low Strength)81 Mg Tabdr81 Mg PO DAILY #30 TAB Ref 0 Prov:Brenda Jones PA-C 08/22/16 Amlodipine (Norvasc)5 Mg Tab5 Mg PO DAILY #30 TAB Ref 0 Prov:Katherine Blood 08/22/16 Blanca Pederson MD Sep 03, 2016 19:42
== END 2016-08-22 18:00 | disposition home or self-care (01) ==
LOC: NEPE 17:21 → NEDA 08-21 00:36 → NEPFCDU 08-21 01:58
PROVIDERS: ADMIT Internal Medicine; ATTEND Internal Medicine
DX: I44.7 Left bundle-branch block, unspecified (principal); E66.01 Morbid (severe) obesity due to excess calories; Z68.45 Body mass index [BMI] 70 or greater, adult; I10 Essential (primary) hypertension; R07.89 Other chest pain; R06.02 Shortness of breath; J45.909 Unspecified asthma, uncomplicated; E87.6 Hypokalemia; Z87.891 Personal history of nicotine dependence
CPT/HCPCS: 71020; 71275; 78452; 80048; 80053; 80061; 81001; 82550; 83735; 83880; 84443; 84484; 85025; 85027; 85379; 85610; 85730; 93005; 93017; 93306; 99285; A9502; G0378; J1644; J2785; Q9967